=== PATIENT | male | born 1960 | race African-American/Black ===

== ENCOUNTER 2024-06-22 19:30 | Emergency (ER) | payer OTHER ==
[2024-06-22] MEDS ORDERED: Bumetanide 1 MG/4 ML VIAL IVP SCH (20:15)
[2024-06-22 20:37] LABS: Anion Gap 15 mmol/L (10-20); BUN (Urea Nitrogen) 28 mg/dL (8.4-25.7); Calc. Creatinine Clearance 0 mL/min (70-130); Calcium 9.4 mg/dL (7.8-10.44); Carbon Dioxide 24 mmol/L (23-31); Chloride 104 mmol/L (98-107); Estimated GFR 47; Glucose 166 mg/dL (80-115); Potassium 3.7 mmol/L (3.5-5.1); Sodium 139 mmol/L (136-145)
== END 2024-06-22 21:30 ==
LOC: CSHERS 19:30
DX: I11.0 Hypertensive heart disease with heart failure (principal); I50.9 Heart failure, unspecified; E11.9 Type 2 diabetes mellitus without complications; Z91.148 Patient's other noncompliance with medication regimen for other reason
CPT/HCPCS: 36415; 71045; 80048; 83880; 84484; 93005; 96374; J3490